=== PATIENT | female | born 1985 | race Caucasian/White ===

== ENCOUNTER 2020-09-27 10:31 | Emergency (ER) | payer OTHER ==
[~2020-09-27] VITALS: Ht 157.5 cm; Wt 65.8 kg
[2020-09-27] MEDS ORDERED: GABA300 PO (11:45)
== END 2020-09-27 11:46 | disposition home or self-care (01) ==
LOC: ER 10:31
DX: R51.9 Headache, unspecified (principal); F10.129 Alcohol abuse with intoxication, unspecified
CPT/HCPCS: 99283; A9270